=== PATIENT | female | born 1985 | race American Indian/Alaskan Native ===

== ENCOUNTER 2020-11-09 05:42 | Day surgery (SDC) | payer MEDICAID ==
[2020-11-09] MEDS ORDERED: GABAPENTIN 300 MG CAP PO NR (06:00)
[2020-11-09] MEDS ORDERED: MIDAZOLAM 2 MG/2 ML INJ IV NR (06:00)
[2020-11-09] MEDS ORDERED: CELECOXIB 200 MG CAP PO NR (06:00)
[2020-11-09] MEDS ORDERED: LACTATED RINGERS 1,000 ML IV SCH (06:00)
[2020-11-09] MEDS ORDERED: ACETAMINOPHEN 500 MG TAB PO SCH (06:00)
--- NOTE | 2020-11-09 06:57 | Anesthesia Consultation ---
Anesthesia Consult and Med Hx Date of service: 11/09/20 - Airway Anesthetic Teeth Evaluation: Good ROM Head & Neck: Adequate Mental/Hyoid Distance: Adequate Mallampati Class: Class II Intubation Access Assessment: Good - Pulmonary Exam CTA: Yes - Cardiac Exam Cardiac Exam: RRR - Pre-Operative Health Status ASA Pre-Surgery Classification: ASA1 Proposed Anesthetic Plan: General - Pulmonary Hx Asthma: Yes (As a child) - Central Nervous System Hx Psychiatric Problems: No - Other Systems Hx Alcohol Use: Yes (Occas) Hx Cancer: No
--- NOTE | 2020-11-09 06:58 | Anesthesia Day of Surgery ---
Anesthesia Day of Surgery - Day of Surgery Patient Examined: Yes Patient H&P Reviewed: Yes Patient is NPO: Yes
--- NOTE | 2020-11-09 07:07 | Short Stay Summary ---
Short Stay Documentation Date of service: 11/09/20 Narrative H&P: 35-year-old -0-0-1 with a history of a left adnexal cyst measuring 12 cm. The patient reports pain and discomfort and associated pressure secondary to the large adnexal mass. She is elected to undergo surgical management of her symptoms. - History Principal diagnosis: Adnexal mass Past Medical History: other (Uterine fibroids) Past Surgical History: Other (Hip surgery) Social history: single - Allergies and Medications Current Medications: Allergies No Known Allergies Allergy (Unverified 11/07/20 16:11) Home Medications Medication Instructions Recorded Confirmed Last Taken Type No Known Home Medications [No 11/07/20 11/07/20 Unknown History Reported Home Medications] Active Medications Acetaminophen (Acetaminophen 500 Mg Tab) 1,000 mg PO PREOP ROSALIO Stop: 11/09/20 23:01 Celecoxib (Celecoxib 200 Mg Cap) 200 mg PO PREOP NR Stop: 11/09/20 23:01 Gabapentin (Gabapentin 300 Mg Cap) 300 mg PO PREOP NR Stop: 11/09/20 23:00 Lactated Ringer's (Lactated Ringers) 1,000 mls @ 100 mls/hr IV DIRECT ROSALIO Stop: 11/09/20 23:59 Midazolam HCl (Midazolam 2 Mg/2 Ml Inj) 2 mg IV PREOP NR Stop: 11/09/20 23:00 - Physical exam General appearance: no acute distress Integumentary: no rash HEENT: Atraumatic Lungs: Clear to auscultation Breasts: deferred Heart: Regular rate Gastrointestinal: normal Female Genitourinary: deferred Rectal Exam: deferred Extremities: no ischemia - Brief post op/procedure progress note Date of procedure: 11/09/20 Pre-op diagnosis: Left adnexal mass Post-op diagnosis: same Procedure: Laparoscopy Ovarian cystectomy Anesthesia: GETA Surgeon: MAYTE STARR Estimated blood loss: 50-100ml Pathology: list (Ovarian cyst) Specimen disposition: to lab Condition: stable - Hospital course Hospital course: The patient was admitted the day of surgery underwent a laparoscopy and a left ovarian cystectomy. Please see operative note for details of surgery. Her postoperative course was uneventful. - Disposition Condition at discharge: Good Disposition: DC- TO HOME OR SELFCARE Short Stay Discharge Plan Activity: other (Pelvic rest for 1 week) Diet: regular Additional Instructions: Schedule follow-up with Dr. Starr in 2-4 weeks Prescriptions: Ibuprofen [Motrin] 800 mg PO Q8HR PRN #30 tablet PRN Reason: Pain , Severe (7-10) oxyCODONE /ACETAMINOPHEN [Percocet 5/325] 1 tab PO Q6HR PRN #15 tablet PRN Reason: Pain
[2020-11-09] MEDS ORDERED: ONDANSETRON 4 MG/2 ML INJ IV PRN (07:30)
[2020-11-09] MEDS ORDERED: HYDROmorphone 1 MG/1 ML INJ IV PRN (07:30)
[2020-11-09] MEDS ORDERED: ePHEDrine SULFATE 50 MG/1 ML INJ ONE (07:33)
[2020-11-09] MEDS ORDERED: SUCCINYLCHOLINE CHLORIDE 200 MG/10 ML INJ MDV ONE (07:36)
[2020-11-09] MEDS ORDERED: GLYCOPYRROLATE 0.4 MG/2 ML INJ ONE (07:36)
[2020-11-09] MEDS ORDERED: fentaNYL 100 MCG/2 ML INJ ONE (07:36)
[2020-11-09] MEDS ORDERED: dexAMETHasone 20 MG/5 ML VIAL ONE (07:36)
[2020-11-09] MEDS ORDERED: ROCURONIUM 50 MG/5 ML INJ IV ONE (07:36)
[2020-11-09] MEDS ORDERED: ONDANSETRON 4 MG/2 ML INJ ONE (07:36)
[2020-11-09] MEDS ORDERED: LIDOCAINE MPF (2%) 20 MG/1 ML VIAL 5 ML ONE (07:36)
[2020-11-09] MEDS ORDERED: propofoL 200 MG/20 ML VIAL IV ONE (07:36)
[2020-11-09] MEDS ORDERED: PHENYLEPHRINE/NS 1,000 MCG/10 ML SYRINGE (OR USE) IV ONE (07:36)
[2020-11-09] MEDS ORDERED: NEOSTIGMINE 10MG/10 ML INJ MDV ONE (07:36)
[2020-11-09] MEDS ORDERED: HYDROmorphone 1 MG/1 ML INJ ONE (07:57)
[2020-11-09] MEDS ORDERED: BUPIVACAINE/PF (0.5%) 5 MG/1 ML 30 ML VIAL INFILTRATI ONE ×2 (08:22→08:25)
[2020-11-09] MEDS ORDERED: SODIUM CHLORIDE 0.9% IRRIG SOLN 2000 ML IR ONE (08:26)
[2020-11-09] MEDS ORDERED: SODIUM CHLORIDE 0.9% IRR 1,500 ML BOTTLE IR ONE (08:26)
--- NOTE | 2020-11-09 09:38 | Operative Report ---
Operative Report Operative Report: Date of surgery: November 09, 2020 Preoperative diagnosis: Left adnexal mass Postoperative diagnosis: Same as above; left dermoid tumor Procedure: Laparoscopy; left ovarian cystectomy Surgeon: Dominique Guzman M.D. Anesthesia: General endotracheal anesthesia Estimated blood loss: 50 mL Findings: 12 cm left adnexal mass consistent with a dermoid tumor Pathology: Ovarian cyst; dermoid tumor Indication: 35-year-old -0-0-1 with a history of left-sided pelvic pain with ultrasound findings of a 12 cm left adnexal mass. Tumor markers were negative. Procedure: The patient was taken to the operating room and given general endotracheal anesthesia without complication. The patient is prepped and draped in a normal sterile fashion. A bivalve speculum was placed in the patient's vagina and a single-tooth tenaculum was placed on the anterior lip of the cervix .A uterine acorn manipulator was placed, and the bivalve speculum was then removed. Attention was then turned to the patient's abdomen where a 5 mm infraumbilical skin incision was then made. A Veress needle was placed and per itoneal entry was verified water-filled syringe. Insufflation of the peritoneal cavity was performed with CO2 gas. A 5 mm trocar was placed and the laparoscope was then inserted. The patient was then placed in Trendelenburg. A 12 mm suprapubic skin incision was then made. Under direct visualization a 12 mm trocar was then placed. An additional 5 mm left lateral trocar was also placed. General survey of the patient's abdomen revealed an enlarged left adnexal mass approximately 12 cm consistent with a dermoid tumor. There was evidence of fatty fluid and a considerable amount of hair contained within the mass. An incision was made in the ovarian cortex with the monopolar scissors. The contents of the ovarian cyst were evacuated with the Nezhat device. The ovarian cyst was incised with the monopolar scissors. A small amount of ovarian tissue was left as a remnant on the left side. The right tube and ovary were normal in appearance. The Endo Catch bag was inserted through the 12 mm trocar. The cystic contents were placed in the Endo Catch bag and removed through the suprapubic site. In an effort to remove the bag there was noted to be bleeding coming from the rectus muscle of the 12 mm trocar site. Once the ovarian contents were removed in the Endo Catch bag through the incision the fascia was then closed with a Gerardo Nicolas device and 0 Vicryl suture. Pressure was applied to the incision for hemostasis. The trocars were then removed. The pneumoperitoneum was then released. The 5 mm trocar laparoscope was then removed. The skin incisions were then closed with 4-0 Monocryl. The incisions were injected with quarter percent Marcaine. Dressings were applied to the incision. The vaginal instruments were then removed atraumatically. Then successfully extubated and taken to the recovery room. All sponge laps and needle counts were correct x2.
[2020-11-09 12:01] VITALS: BP 122/74
--- NOTE | 2020-11-09 13:05 | Post Anesthesia Evaluation ---
- Post Anesthesia Evaluation Patient Participated: Yes Airway Patent: Yes Stable Respiratory Function: Yes Nausea/Vomiting: No Temp > 96.8F: Yes Pain Manageable: Yes Adequeate Hydration: Yes Anesthesia Complications: No
== END 2020-11-09 11:50 | disposition home or self-care (01) ==
LOC: OR 05:42
PROVIDERS: ATTEND Obstetrics & Gynecology
DX: N83.8 Other noninflammatory disorders of ovary, fallopian tube and broad ligament (principal); D27.1 Benign neoplasm of left ovary; J45.909 Unspecified asthma, uncomplicated; Z79.899 Other long term (current) drug therapy; Z72.89 Other problems related to lifestyle; Z98.890 Other specified postprocedural states
CPT/HCPCS: 58662; 81025; 88307; A4217; J0330; J1100; J1170; J2250; J2370; J2405; J2704; J2710; J3010; J7120; 88305